=== PATIENT | male | born 1965 ===

== ENCOUNTER 2017-02-18 02:17 | Observation (INO) | payer BC ==
[2017-02-18] MEDS ORDERED: Nitroglycerin 2% Ointment 1 INCH/1 GM Packet ONE (02:42)
[2017-02-18] MEDS ORDERED: Nitroglycerin 0.4 MG TAB (25 Tab Bottle) ONE (02:42)
[2017-02-18 02:57] LABS: #Basophils 0.1 thou/uL (0.0-0.2); #Eosinphils 0.2 thou/uL (0.0-0.7); #Lymphocytes 3.7 thou/uL (1.20-3.40); #Monocytes 0.7 thou/uL (0.11-0.59); #Neutrophils 4.2 thou/uL (1.40-6.50); %Basophils 1.3 % (0.0-1.0); %Lymphocytes 41.2 % (21.0-51.0); %Monocytes 7.8 % (0.0-10.0); Hematocrit 46.8 % (42.0-52.0); Mean Platelet Volume 6.8 fL (7.4-10.4); Red Blood Cell (RBC) Count 5.53 mill/uL (4.70-6.10); White Blood Cell (WBC) Count 8.9 thou/uL (4.8-10.8)
[2017-02-18 03:13] LABS: Troponin I Less than 0.010 ng/mL (< 0.028)
[2017-02-18 03:16] LABS: ALT (SGPT) 40 U/L (8-55); AST (SGOT) 39 U/L (5-34); Alkaline Phosphatase 124 U/L (40-150); Anion Gap 15 mmol/L (10-20); BUN (Urea Nitrogen) 22 mg/dL (8.4-25.7); Bilirubin, Total 0.3 mg/dL (0.2-1.2); CK (CPK) 194 U/L (30-200); Calc. Creatinine Clearance 0 mL/min (70-130); Calcium 9.3 mg/dL (7.8-10.44); Carbon Dioxide 25 mmol/L (22-29); Chloride 101 mmol/L (98-107); Estimated GFR-MDRD 64; Globulin 4.4 g/dL (2.4-3.5); Lipase 28 U/L (8-78); Protein, Total 8.6 g/dL (6.0-8.3)
[2017-02-18 05:40] VITALS: BMI 26.2
[2017-02-18] MEDS ORDERED: Ondansetron HCl/PF 4 MG/2 ML Vial IVP PRN (06:25)
[2017-02-18] MEDS ORDERED: Ondansetron ODT 4 MG TAB SL PRN (06:25)
[2017-02-18] MEDS ORDERED: Acetaminophen 325 MG TAB PO PRN (06:25)
[2017-02-18 06:26] LABS: Troponin I Less than 0.010 ng/mL (< 0.028)
[2017-02-18] MEDS ORDERED: Nitroglycerin 2% Ointment 1 INCH/1 GM Packet TOP SCH (06:30)
--- NOTE | 2017-02-18 08:32 | HP ---
HISTORY OF PRESENT ILLNESS: This is a 52-year-old male admitted with hypertension adm itted with chest pain. The patient over the past several months has had occasional episodes of palpi tations. At times his heart would be pounding. Last night he had a headache therefore he took 2 Exc edrin's and then went to bed. At approximately 2:00 a.m. he awoke with his heart pounding. He becam e very alarmed. He had mild chest pain at the most. No shortness of breath, no diaphoresis. At thi s time, he is chest pain free. He did come to the Emergency Room and his blood pressure was noted to be quite elevated. PAST MEDICAL HISTORY: Hypertension, hyperlipidemia. PAST SURGICAL HISTORY: Colonoscopy 2013, normal. FAMILY HISTORY: Father and siblings with heart disease. SOCIAL HISTORY: He quit smoking several years prior. He is . He has children. MEDICATIONS: HCTZ 12.5 daily. ALLERGIES: None. PHYSICAL EXAMINATION: VITAL SIGNS: Blood pressure 117/81, temperature 97.8, pulse 92, respirations 18, admission blood pre ssure was 188/119, 149/94. HEENT: Clear. HEART: Regular rate and rhythm without murmur. LUNGS: Clear. ABDOMEN: Soft. EXTREMITIES: With no edema. LABORATORY: Electrolytes normal. Creatinine 1.18, BUN 22, blood sugar 130. Troponin I less than 0. 010 x2. EKG; normal sinus rhythm. Chest x-ray negative. ASSESSMENT: 1. Palpitations/chest pain, rule out myocardial infarction. 2. Hypertension. 3. Overweight. 4. Hyperlipidemia. PLAN: 1. Cardiolite stress test and echo today. 2. Follow up at discharge. 3. Etiology most likely related to Excedrin and caffeine. Consider outpatient Holter monitor.
[2017-02-18 08:53] LABS: Troponin I Less than 0.010 ng/mL (< 0.028)
[2017-02-18] MEDS ORDERED: Aspirin 325 MG TAB PO SCH (09:00)
--- NOTE | 2017-02-18 09:50 | RAD ---
PORTABLE UPRIGHT FRONTAL CHEST RADIOGRAPH: Date: 02-18-17 Comparison: None. History: Palpitations and chest pain. FINDINGS: There is no pneumothorax, pleural fluid, focal consolidation or alveolar edema. Heart and mediastinal contours are within normal limits. IMPRESSION: No acute findings. POS: [facility]
[2017-02-18 12:24] VITALS: BP 135/85; TEMP 98.1
--- NOTE | 2017-02-18 14:53 | NM ---
CARDIAC SPECT: CLINICAL HISTORY: 52-year-old male with chest pain and hypertension. TECHNIQUE: A myocardial perfusion scan was performed using the single isotope one day protocol with technetium-9 9m sestamibi. 9 mCi were injected intravenously for the rest exam followed by 33 mCi for the stress e xam. Exercise stress was monitored and interpreted by Melvin Moore NP. FINDINGS: Homogeneous tracer distribution is seen in the myocardial segments on stress and rest images without fixed or reversible defects. GATED SPECT LVEF: 56%. WALL MOTION EXAM: Normal. IMPRESSION: Normal myocardial perfusion scan. POS: [facility]
--- NOTE | 2017-02-22 11:04 | DIS ---
DATE OF ADMISSION: 02/18/2017 DATE OF DISCHARGE: 02/18/2017 DISCHARGE DIAGNOSES: 1. Chest pain. 2. Palpitations. 3. Hypertension. 4. Overweight. 5. Hyperlipidemia. PROCEDURE PERFORMED: Cardiolite stress test normal. BRIEF HISTORY: This is a 52-year-old [place] male admitted with hypertension and chest pain. Patient has also had palpitations off and on for the past several months. Occasionally, he would parish ve pounding of his heart, but now prior to admission, he took 2 Excedrin due to headache and went to bed. Approximately 2:00 a.m., he awoke with palpitations. He became very alarmed, developed chest p ain and presented to the emergency room where his blood pressure was found to be quite elevated. HOSPITAL COURSE: The patient has not been seen in over a year. He underwent a Cardiolite stress nani t, which was found to be unremarkable. His blood pressures did return to normal. He was instructed to resume his HCTZ 12.5 daily, which I am not sure he was compliant with. However, his blood pressur e upon discharge was in the normal range. I have strongly encouraged him to come to see me in the of [facility].
--- NOTE | 2017-03-06 14:24 | EKG ---
Test Reason : CHEST PAIN Blood Pressure : / mmHG Vent. Rate : 092 BPM Atrial Rate : 092 BPM P-R Int : 142 ms QRS Dur : 094 ms QT Int : 354 ms P-R-T Axes : 043 015 015 degrees QTc Int : 437 ms Normal sinus rhythm No ST/T wave changes Normal ECG Confirmed by SAMANTHA SIEGEL DO ([id number]), script editor YAZMIN JEROME ([id number]) on 03/06/2017 2:23:53 PM Referred By: Confirmed By:SAMANTHA SIEGEL DO
== END 2017-02-18 14:14 | disposition home or self-care (01) ==
LOC: ERS 02:17 → 2SW 04:33
PROVIDERS: ADMIT Family Medicine; ATTEND Family Medicine
DX: R07.9 Chest pain, unspecified (principal); R00.2 Palpitations; I10 Essential (primary) hypertension; E78.5 Hyperlipidemia, unspecified; E66.3 Overweight; Z68.26 Body mass index [BMI] 26.0-26.9, adult; Z79.899 Other long term (current) drug therapy; Z98.890 Other specified postprocedural states; Z87.891 Personal history of nicotine dependence
CPT/HCPCS: 36415; 71010; 78452; 80053; 82553; 83690; 84484; 85025; 93005; 93017; A9500; G0378